=== PATIENT | male | born 1975 | race Caucasian/White ===

== ENCOUNTER → 2025-02-09 | Outpatient (CLI) | payer OTHER ==
--- NOTE | 2025-02-10 08:11 | HMCIMG ---
EXAMINATION: ULTRASOUND OF THE URINARY BLADDER. CLINICAL HISTORY: Retention of urine. COMPARISON: No prior studies. TECHNIQUE: Real-time grayscale ultrasound images of the urinary bladder. FINDINGS: Urinary bladder is well distended and normal in caliber with wall thickness (0.40 cm). There are no calculi. Pre-void volume: 215 cc, Post-void volume: 28 cc. The prostate gland is normal in caliber and measures 3.9 x 2.7 x 3.0 cm in the craniocaudal, AP, and transverse dimensions respectively with a volume of 17 cc. No pelvic ascites. IMPRESSION:No significant abnormality. /Bry
== END | disposition home or self-care (01) ==
LOC: RAH 10:10
PROVIDERS: ATTEND Internal Medicine Critical Care Medicine
DX: R33.9 Retention of urine, unspecified (principal)
CPT/HCPCS: 76857